=== PATIENT | female | born 1975 | race Caucasian/White ===

== ENCOUNTER 2016-11-05 14:51 | Emergency (ER) | payer SELFPAY ==
[~2016-11-05] VITALS: Ht 172.7 cm; Wt 79.5 kg
[~2016-11-05 14:51] MED LIST: ADVA250A INH; ALBU6.7H INH; CYCL-36 PO; IBUP-238 PO; IPRA17I INH; LASI20TA PO; OXYC15TA PO; POTA-243 PO
[2016-11-05 15:04] VITALS: BP 129/71; PULSE 82; RESP 14; TEMP 98.6; O2SAT 95
--- NOTE | 2016-11-05 15:20 | PD ---
HPI Chief Complaint: Respiratory Symptoms Time Seen by Provider: 15:14 Travel History International Travel<30 days: No Contact w/Intl Traveler<30days: No Traveled to known affect area: No History of Present Illness HPI 40 YO F with PMH of COPD presents to the ED via EMS for evaluation of 1 week history of SOB, worsened over today. The patient endorses chills, has not measured a fever at home. She endorses sinus congestion, runny nose, bilateral ear pain, right greater than left and sore throat 1 week. She denies chest pain, palpitations, nausea, vomiting. She states that she has recently moved from [place] and does not have any of her prescribed nebulizers or medications. She received 2 breathing treatments en route and states that her symptoms are improving. PFSH Past Medical History Asthma: Yes Anxiety: Yes Depression: Yes Cardiovascular Problems: Yes (CHF) COPD: Yes Diminished Hearing: No Respiratory: Yes : 3 Para: 3 Miscarriage: 0 : 0 Tubal Ligation: Yes Past Surgical History Section: Yes (X2) Social History Alcohol Use: Yes (OCCAS) Tobacco Use: No (QUIT 2008) Substance Use: Yes (WEED) Allergies-Medications (Allergen,Severity, Reaction): Coded Allergies: codeine (Unverified Allergy, Severe, Hives, 11/05/16) penicillin G (Unverified Allergy, Severe, Hives, 11/05/16) Reported Meds & Prescriptions Reported Meds & Active Scripts Active Compressor Nebulizer 1 Mis Mis Ea .ROUTE DIRECTED Nebulizer/Adult Mask (N/A) 1 Kit Kit Kit .ROUTE DIRECTED Albuterol Neb (Albuterol Sulfate) 2.5 Mg/3 Ml Neb 2.5 Mg NEB Q4HR NEB PRN Prednisone 20 Mg Tab 40 Mg PO DAILY Take 40 mg (2 tablets) daily for 5 days Proair Hfa 8.5 GM Inh (Albuterol Sulfate) 90 Mcg/Act Aer 2 Puff INH Q4-6H PRN 108 mcg/actuation Azithromycin 250 Mg Tab 250 Mg PO DIRECTED Take 2 tabs (500 mg) on day 1 then 1 tab daily x 4 days. Review of Systems Except as stated in HPI: all other systems reviewed are Neg Physical Exam Narrative GENERAL: Well-nourished, well-developed white female in no acute distress. SKIN: Warm and dry. HEAD: Normocephalic. Atraumatic. EYES: No scleral icterus. No injection or drainage. PERRLA. EOMI. ENT: Pearly herbert tympanic membranes bilaterally. Left external canal erythematous with small amount of exudate. Nasal mucosa is moist. Oropharynx mildly erythematous with scattered white exudates. No edema. Uvula midline. NECK: Supple, trachea midline. No JVD or lymphadenopathy. CARDIOVASCULAR: Regular rate and rhythm without murmurs, gallops, or rubs. 2+ DP and radial pulses bilaterally. RESPIRATORY: Breath sounds coarse rales and end expiratory wheezing in all lung ortez. No accessory muscle use. GASTROINTESTINAL: Abdomen soft, non-tender, nondistended. + Bowel sounds MUSCULOSKELETAL: No cyanosis, or edema. BACK: Nontender without obvious deformity. No CVA tenderness. Data Data Last Documented VS Vital Signs Date Time Temp Pulse Resp B/P (MAP) Pulse Ox O2 Delivery O2 Flow Rate FiO2 11/05/16 15:51 97 21 11/05/16 15:04 98.6 82 14 129/71 (90) Orders Orders Complete Blood Count With Diff (11/05/16 15:25) Influenzae A/B Antigen (11/05/16 15:25) Iv Access Insert/Monitor (11/05/16 15:25) Ecg Monitoring (11/05/16 15:25) Oximetry (11/05/16 15:25) Chest, Single Ap (11/05/16 15:25) Sodium Chloride 0.9% Flush (Ns Flush) (11/05/16 15:30) Methylprednisolone So Succ Inj (Solumedr (11/05/16 15:30) Albuterol-Ipratropium Neb (Duoneb Neb) (11/05/16 15:30) Group A Rapid Strep Screen (11/05/16 15:25) Basic Metabolic Panel (Bmp) (11/05/16 15:25) Strep Culture (Group A) (11/05/16 15:50) Resp Mdi/Instruction (11/05/16 ) Labs Laboratory Tests Test 11/05/16 15:50 White Blood Count 7.5 TH/MM3 Red Blood Count 4.27 MIL/MM3 Hemoglobin 14.1 GM/DL Hematocrit 40.9 % Mean Corpuscular Volume 95.9 FL Mean Corpuscular Hemoglobin 33.0 PG Mean Corpuscular Hemoglobin Concent 34.4 % Red Cell Distribution Width 14.0 % Platelet Count 91 TH/MM3 Mean Platelet Volume 12.0 FL Neutrophils (%) (Auto) 71.1 % Lymphocytes (%) (Auto) 17.8 % Monocytes (%) (Auto) 10.5 % Eosinophils (%) (Auto) 0.2 % Basophils (%) (Auto) 0.4 % Neutrophils # (Auto) 5.3 TH/MM3 Lymphocytes # (Auto) 1.3 TH/MM3 Monocytes # (Auto) 0.8 TH/MM3 Eosinophils # (Auto) 0.0 TH/MM3 Basophils # (Auto) 0.0 TH/MM3 CBC Comment AUTO DIFF Differential Comment AUTO DIFF CONFIRMED Platelet Estimate LOW Platelet Morphology Comment GIANT Ovalocytes 1+ Blood Urea Nitrogen 13 MG/DL Creatinine 0.69 MG/DL Random Glucose 86 MG/DL Calcium Level 9.0 MG/DL Sodium Level 140 MEQ/L Potassium Level 3.5 MEQ/L Chloride Level 107 MEQ/L Carbon Dioxide Level 24.6 MEQ/L Anion Gap 8 MEQ/L Estimat Glomerular Filtration Rate 95 ML/MIN MDM Medical Decision Making Medical Screen Exam Complete: Yes Emergency Medical Condition: Yes Differential Diagnosis COPD exacerbation versus PNA versus Narrative Course 40 YO F with PMH of COPD presents to the ED via EMS for evaluation of 1 week history of SOB, worsened over today. The patient endorses chills, has not measured a fever at home. She endorses sinus congestion, runny nose, bilateral ear pain, right greater than left and sore throat 1 week. She denies chest pain, palpitations, nausea, vomiting. She received 2 breathing treatments en route and states that her symptoms are improving. Vitals reviewed. O2 sats 95- 97% on room air. Physical exam reveals a nontoxic-appearing white female in no acute distress. The left external canal is mildly erythematous. There is mild posterior oropharyngeal erythema with scattered exudates. She does have coarse breath sounds in bilateral lung ortez with end expiratory wheezing. Exam otherwise unremarkable. Patient was administered IV steroids and DuoNeb 3. Rapid strep swab negative CXR: Minimal consolidative changes in the right lower lobe. No leukocytosis on his CBC. CMP unremarkable. On recheck she reports improvement of her symptoms. This is a COPD exacerbation with community-acquired pneumonia. Patient was prescribed azithromycin, prednisone, rescue inhaler with spacer. She was also prescribed nebulizer equipment and medications. She is instructed to use the rescue inhaler until she can afford to by the other equipment. She was provided with information for follow-up with the [facility] and a good Rx discount card. We discussed reasons to return to the ED. Patient indicated understanding of instructions and is agreeable to the care plan. She is stable and discharged home. Diagnosis Primary Impression: CAP (community acquired pneumonia) Qualified Codes: J18.1 - Lobar pneumonia, unspecified organism Additional Impression: COPD with exacerbation Referrals: [facility] Patient Instructions: Community Acquired Pneumonia (ED), General Instructions Additional Instructions: Rest, hydrate. Take all antibiotics as prescribed, even if her symptoms resolve. Take steroids as prescribed. Use the rescue inhaler with the spacer in lieu of the albuterol treatments until you're able to get a new nebulizer. Follow-up with the [facility] as discussed. Return to the ED for worsening symptoms or any urgent or emergent medical condition. Med/Other Pt SpecificInfo: Prescription(s) given Scripts Compressor Nebulizer (Compressor Nebulizer) 1 Mis Mis EA .ROUTE DIRECTED for Breathing Treatment, #1 0 Refills Prov: Tanvi Delgado MD 11/05/16 Nebulizer/Adult Mask (Nebulizer/Adult Mask) 1 Kit Kit KIT .ROUTE DIRECTED for Breathing Treatment, #1 0 Refills Prov: Tanvi Delgado MD 11/05/16 Albuterol Neb (Albuterol Neb) 2.5 Mg/3 Ml Neb 2.5 MG NEB Q4HR NEB Y for SHORTNESS OF BREATH, #60 NEBULE 0 Refills Prov: Tanvi Delgado MD 11/05/16 Prednisone (Prednisone) 20 Mg Tab 40 MG PO DAILY, #10 TAB 0 Refills Take 40 mg (2 tablets) daily for 5 days Prov: Tanvi Delgado MD 11/05/16 Albuterol 8.5 GM Inh (Proair Hfa 8.5 GM Inh) 90 Mcg/Act Aer 2 PUFF INH Q4-6H Y for SHORTNESS OF BREATH, #1 INHALER 0 Refills 108 mcg/actuation Prov: Tanvi Delgado MD 11/05/16 Azithromycin (Azithromycin) 250 Mg Tab 250 MG PO DIRECTED for Infection, #6 TAB 0 Refills Take 2 tabs (500 mg) on day 1 then 1 tab daily x 4 days. Prov: Tanvi Delgado MD 11/05/16 Disposition: 01 DISCHARGE HOME Condition: Stable Radha Bryant Nov 05, 2016 15:20
[2016-11-05] MEDS ORDERED: SODIUM CHLORIDE 0.9% FLUSH 10 ML FLUSH IVF PRN (15:30)
[2016-11-05] MEDS ORDERED: methylPREDNISolone SOD SUCC 125 MG/2 ML VIAL IV PUSH ONE (15:30)
[2016-11-05] MEDS: RESP: ALBUTEROL 2.5 MG/IPRATROPIUM 0.5 MG NEB (SCH) INH ×2 (15:46→15:47)
[2016-11-05 15:51] VITALS: O2SAT 97
--- NOTE | 2016-11-05 15:55 | RADRPT ---
EXAM DATE/TIME: 11/05/2016 15:40 [facility] COMPARISON: CHEST SINGLE AP, August 16, 2013, 4:21. INDICATIONS : Short of breath. MEDICAL HISTORY : Chronic obstructive pulmonary disease. SURGICAL HISTORY : None. ENCOUNTER: Initial ACUITY: 1 day PAIN SCORE: 0/10 LOCATION: Bilateral chest FINDINGS: Minimal probable changes are present in the right base. Left lung is clear. The heart and pulmonary vascularity are normal. The portion of the bony skeleton visualized is unremarkable. CONCLUSION: Minimal probable changes right base. This could be an inflammatory process. Bala Wisdom MD FACR on November 05, 2016 at 15:52 Board Certified Radiologist. This report was verified electronically.
[2016-11-05 16:21] LABS: AUTOMATED NEUTROPHIL # 5.3 TH/MM3 (1.8-7.7); BASOPHIL % 0.4 % (0.0-2.0); EOSINOPHIL % 0.2 % (0.0-4.0); HEMATOCRIT 40.9 % (35.0-46.0); LYMPH % 17.8 % (9.0-44.0); LYMPHOCYTE # 1.3 TH/MM3 (1.0-4.8); MEAN CELL VOLUME 95.9 FL (80.0-100.0); MEAN CORPUSCULAR HGB CONC 34.4 % (32.0-36.0); MONO % 10.5 % (0.0-8.0); NEUT % 71.1 % (16.0-70.0); PLATELET COUNT 91 TH/MM3 (150-450); RED BLOOD COUNT 4.27 MIL/MM3 (4.00-5.30); WHITE BLOOD COUNT 7.5 TH/MM3 (4.0-11.0)
[2016-11-05 16:33] LABS: HEMO FLAGS AUTO DIFF
[2016-11-05 16:38] LABS: BICARBONATE 24.6 MEQ/L (21.0-32.0); POTASSIUM 3.5 MEQ/L (3.5-5.1)
[2016-11-05] MEDS ORDERED: ALBU0.08 NEB (16:48)
[2016-11-05] MEDS ORDERED: ALBUAER3 INH (16:48)
[2016-11-05] MEDS ORDERED: PRED20 PO (16:48)
[2016-11-05] MEDS ORDERED: AZIT250T3 PO (16:48)
[2016-11-05] MEDS ORDERED: NEBULIZER/ADULT1 KIT ×2 (16:48→17:08)
[2016-11-05] MEDS ORDERED: COMPRESSOR NEBU1 MIS ×2 (16:48→17:08)
[2016-11-05 17:26] LABS: OVALOCYTES 1+ (NORMAL); PLATELET ESTIMATE SMEAR LOW (NORMAL); PLATELET MORPHOLOGY GIANT (NORMAL); SCAN/DIFF AUTO DIFF CONFIRMED
== END 2016-11-05 17:28 | disposition home or self-care (01) ==
LOC: NEPC 14:51
DX: J44.0 Chronic obstructive pulmonary disease with (acute) lower respiratory infection (principal); J18.1 Lobar pneumonia, unspecified organism; Z87.891 Personal history of nicotine dependence
CPT/HCPCS: 71010; 80048; 85025; 87081; 87804; 87880; 94640; 94664; 96374; 99285; J2930

== ENCOUNTER 2016-11-11 07:56 | Emergency (ER) | payer SELFPAY ==
[~2016-11-11] VITALS: Ht 162.6 cm; Wt 90.0 kg
[~2016-11-11 07:56] MED LIST changes: -ADVA250A INH; +ALBU0.08 NEB; -ALBU6.7H INH; +ALBUAER3 INH; +AZIT250T3 PO; +COMPRESSOR NEBU1 MIS; -CYCL-36 PO; -IBUP-238 PO; -IPRA17I INH; -LASI20TA PO; +NEBULIZER/ADULT1 KIT; -OXYC15TA PO; -POTA-243 PO; +PRED20 PO
[2016-11-11 07:58] VITALS: BP 151/91; PULSE 76; RESP 18; TEMP 98.5; O2SAT 95
[2016-11-11 08:10] VITALS: BP 132/88; PULSE 92; RESP 19; TEMP 98.3; O2SAT 98
[2016-11-11 08:15] VITALS: O2SAT 97
[2016-11-11 08:59] LABS: BASOPHIL % 0.4 % (0.0-2.0); EOSINOPHIL # 0.1 TH/MM3 (0-0.4); EOSINOPHIL % 1.6 % (0.0-4.0); HEMATOCRIT 39.8 % (35.0-46.0); HEMO FLAGS DIFF FINAL; LYMPH % 25.6 % (9.0-44.0); MEAN CELL VOLUME 95.3 FL (80.0-100.0); MEAN CORPUSCULAR HGB CONC 33.6 % (32.0-36.0); MONO % 8.1 % (0.0-8.0); NEUT % 64.3 % (16.0-70.0); PLATELET COUNT 135 TH/MM3 (150-450); RED BLOOD COUNT 4.17 MIL/MM3 (4.00-5.30); RED CELL DISTRIBUTION WIDTH 13.8 % (11.6-17.2); WHITE BLOOD COUNT 7.8 TH/MM3 (4.0-11.0)
[2016-11-11 09:08] LABS: BACTERIA, URINE RARE /hpf; BLOOD, URINE NEG (NEG); COMMENT (UR) CULT NOT INDICATED; CULTURE IF INDICATED CULT NOT INDICATED; GLUCOSE,URINE NEG (NEG); KETONE, URINE NEG (NEG); NITRITE,URINE NEG (NEG); PH, URINE 6.5 (5.0-8.5); URINE COLOR LIGHT-YELLOW (YELLW/STRAW)
[2016-11-11 09:18] LABS: ALT (GPT) 34 U/L (10-53); ANION GAP 5 MEQ/L (5-15); AST (GOT) 15 U/L (15-37); BLOOD UREA NITROGEN 10 MG/DL (7-18); CHLORIDE 106 MEQ/L (98-107); GLOMERULAR FILTRATION RATE 93 ML/MIN (>89); POTASSIUM 3.7 MEQ/L (3.5-5.1); SODIUM (NA) 139 MEQ/L (136-145)
[2016-11-11 09:21] LABS: ALKALINE PHOSPHATASE 91 U/L (45-117); TOTAL BILIRUBIN ADULT 0.3 MG/DL (0.2-1.0)
[2016-11-11] MEDS ORDERED: methylPREDNISolone SOD SUCC 125 MG/2 ML VIAL IV PUSH ONE (10:00)
[2016-11-11] MEDS: RESP: ALBUTEROL 2.5 MG/IPRATROPIUM 0.5 MG NEB (SCH) INH ×2 (10:08→10:09)
[2016-11-11 10:12] VITALS: O2SAT 96
--- NOTE | 2016-11-11 10:34 | PD ---
HPI Chief Complaint: GI Complaint Time Seen by Provider: 08:57 Travel History International Travel<30 days: No Contact w/Intl Traveler<30days: No Traveled to known affect area: No History of Present Illness HPI 40-year-old female arrives complaining of cough and dyspnea and nausea vomiting is morning. She was recently diagnosed with pneumonia. She completed a course of azithromycin and has been using an albuterol inhaler. She reports marginal improvement if any. She denies fever. This morning she vomited for the first time. 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 Pt complains of sore throat. NO night sweats or hemoptysis. PFSH Past Medical History Asthma: Yes Anxiety: Yes Depression: Yes Cardiovascular Problems: Yes (CHF) COPD: Yes Diminished Hearing: No Respiratory: Yes ?: Not LMP: 11/11/16 : 3 Para: 3 Miscarriage: 0 : 0 Tubal Ligation: Yes Past Surgical History Section: Yes (X2) Social History Alcohol Use: Yes (OCCAS) Tobacco Use: No (QUIT 10/2016) Substance Use: Yes (cannabis) Allergies-Medications (Allergen,Severity, Reaction): Coded Allergies: codeine (Unverified Allergy, Severe, Hives, 11/11/16) penicillin G (Unverified Allergy, Severe, Hives, 11/11/16) Reported Meds & Prescriptions Reported Meds & Active Scripts Active Levofloxacin 500 Mg Tablet 500 Mg PO DAILY 7 Days Clindamycin (Clindamycin HCl) 150 Mg Cap 450 Mg PO Q8HR 7 Days Compressor Nebulizer 1 Mis Mis Ea .ROUTE DIRECTED Nebulizer/Adult Mask (N/A) 1 Kit Kit Kit .ROUTE DIRECTED Albuterol Neb (Albuterol Sulfate) 2.5 Mg/3 Ml Neb 2.5 Mg NEB Q4HR NEB PRN Prednisone 20 Mg Tab 40 Mg PO DAILY Take 40 mg (2 tablets) daily for 5 days Proair Hfa 8.5 GM Inh (Albuterol Sulfate) 90 Mcg/Act Aer 2 Puff INH Q4-6H PRN 108 mcg/actuation Azithromycin 250 Mg Tab 250 Mg PO DIRECTED Take 2 tabs (500 mg) on day 1 then 1 tab daily x 4 days. Review of Systems Except as stated in HPI: all other systems reviewed are Neg Physical Exam Narrative GENERAL: 40 yo F, NAD, speaking full sentences SKIN: Warm and dry. HEAD: Atraumatic. Normocephalic. EYES: Pupils equal and round. No scleral icterus. No injection or drainage. ENT: No nasal bleeding or discharge. Mucous membranes pink and moist. Tonsillar exudate present. +Anterior neck adenopathy. NECK: Trachea midline. No JVD. CARDIOVASCULAR: Regular rate and rhythm. RESPIRATORY: Wheezing present bilaterally. Mild tachypnea. GASTROINTESTINAL: Abdomen soft, non-tender, nondistended. Hepatic and splenic margins not palpable. MUSCULOSKELETAL: Extremities without clubbing, cyanosis, or edema. No obvious deformities. NEUROLOGICAL: Awake and alert. No obvious cranial nerve deficits. Motor grossly within normal limits. Five out of 5 muscle strength in the arms and legs. Normal speech. PSYCHIATRIC: Appropriate mood and affect; insight and judgment normal. Data Data Last Documented VS Vital Signs Date Time Temp Pulse Resp B/P (MAP) Pulse Ox O2 Delivery O2 Flow Rate FiO2 11/11/16 11:06 98 20 135/85 (102) 98 11/11/16 10:12 21 11/11/16 08:15 Room Air 11/11/16 08:10 98.3 vs reviewed Orders Orders Complete Blood Count With Diff (11/11/16 08:12) Comprehensive Metabolic Panel (11/11/16 08:12) Urinalysis - C+S If Indicated (11/11/16 08:12) Ed Urine Pregnancytest Poc (11/11/16 08:12) Iv Access Insert/Monitor (11/11/16 08:12) Oxygen Administration (11/11/16 08:12) Oximetry (11/11/16 08:12) Lipase (11/11/16 08:12) Chest, Single Ap (11/11/16 ) Methylprednisolone So Succ Inj (Solumedr (11/11/16 10:00) Albuterol-Ipratropium Neb (Duoneb Neb) (11/11/16 10:00) Labs Laboratory Tests Test 11/11/16 08:30 11/11/16 08:50 Urine Color LIGHT-YELLOW Urine Turbidity CLEAR Urine pH 6.5 Urine Specific [place] 1.006 Urine Protein NEG mg/dL Urine Glucose (UA) NEG mg/dL Urine Ketones NEG mg/dL Urine Occult Blood NEG Urine Nitrite NEG Urine Bilirubin NEG Urine Urobilinogen LESS THAN 2.0 MG/DL Urine Leukocyte Esterase NEG Urine RBC LESS THAN 1 /hpf Urine Bacteria RARE /hpf Microscopic Urinalysis Comment CULT NOT INDICATED White Blood Count 7.8 TH/MM3 Red Blood Count 4.17 MIL/MM3 Hemoglobin 13.4 GM/DL Hematocrit 39.8 % Mean Corpuscular Volume 95.3 FL Mean Corpuscular Hemoglobin 32.0 PG Mean Corpuscular Hemoglobin Concent 33.6 % Red Cell Distribution Width 13.8 % Platelet Count 135 TH/MM3 Mean Platelet Volume 11.1 FL Neutrophils (%) (Auto) 64.3 % Lymphocytes (%) (Auto) 25.6 % Monocytes (%) (Auto) 8.1 % Eosinophils (%) (Auto) 1.6 % Basophils (%) (Auto) 0.4 % Neutrophils # (Auto) 5.0 TH/MM3 Lymphocytes # (Auto) 2.0 TH/MM3 Monocytes # (Auto) 0.6 TH/MM3 Eosinophils # (Auto) 0.1 TH/MM3 Basophils # (Auto) 0.0 TH/MM3 CBC Comment DIFF FINAL Differential Comment Blood Urea Nitrogen 10 MG/DL Creatinine 0.70 MG/DL Random Glucose 94 MG/DL Total Protein 6.9 GM/DL Albumin 3.2 GM/DL Calcium Level 8.3 MG/DL Alkaline Phosphatase 91 U/L Aspartate Amino Transf (AST/SGOT) 15 U/L Alanine Aminotransferase (ALT/SGPT) 34 U/L Total Bilirubin 0.3 MG/DL Sodium Level 139 MEQ/L Potassium Level 3.7 MEQ/L Chloride Level 106 MEQ/L Carbon Dioxide Level 28.0 MEQ/L Anion Gap 5 MEQ/L Estimat Glomerular Filtration Rate 93 ML/MIN Lipase 160 U/L [facility] Medical Decision Making Medical Screen Exam Complete: Yes Emergency Medical Condition: Yes Differential Diagnosis pneumonia, sepsis, copd, asthma, anemia, renal failure, tb Narrative Course CBC & BMP Diagram 11/11/16 08:50 Total Protein 6.9, Albumin 3.2 L, Calcium Level 8.3 L, Alkaline Phosphatase 91, Aspartate Amino Transf (AST/SGOT) 15, Alanine Aminotransferase (ALT/SGPT) 34, Total Bilirubin 0.3 Last Impressions Chest X-Ray 11/11/16 0000 Signed Impressions: Service Date/Time: Friday, November 11, 2016 10:26 - CONCLUSION: Resolving right basilar density. Ignacio Pacheco MD If no resolution of lung density, cross sectional imaging may be required. return precautions discussed. pt has exudate on tonsils and sore throat and has pcn allergy. atypical coverage with levaquin. strep coverage with clinda. Diagnosis Primary Impression: Pneumonia Qualified Codes: J18.1 - Lobar pneumonia, unspecified organism Additional Impression: Pharyngitis Qualified Codes: J02.9 - Acute pharyngitis, unspecified Referrals: [facility] 2 days Additional Instructions: You have a choice when it comes to health care, and we are glad that you chose [facility]. Hopefully, we have met your expectations on today's visit. You are welcome to return to [facility] at any time, as we are committed to meeting the health care needs of our community. Med/Other Pt SpecificInfo: Prescription(s) given Scripts Levofloxacin (Levofloxacin) 500 Mg Tablet 500 MG PO DAILY for Infection for 7 Days, #7 TAB 0 Refills Prov: Reji Tinsley MD 11/11/16 Clindamycin (Clindamycin) 150 Mg Cap 450 MG PO Q8HR for Infection for 7 Days, CAP 0 Refills Prov: Reji Tinsley MD 11/11/16 Disposition: 01 DISCHARGE HOME Condition: Stable Reji Tinsley MD Nov 11, 2016 10:34
--- NOTE | 2016-11-11 10:50 | RADRPT ---
EXAM DATE/TIME: 11/11/2016 10:26 [facility] COMPARISON: CHEST SINGLE AP, November 05, 2016, 15:40. INDICATIONS : Short of breath with congestion and wheezing. MEDICAL HISTORY : Congestive heart failure. Chronic obstructive pulmonary disease. SURGICAL HISTORY : None. ENCOUNTER: Initial ACUITY: 2 days PAIN SCORE: 0/10 LOCATION: Bilateral chest FINDINGS: A single view of the chest demonstrates resolving right basal density. Left lung clear. Heart normal in size The cardiomediastinal contours are unremarkable. Osseous structures are intact. CONCLUSION: Resolving right basilar density. Ignacio Pacheco MD on November 11, 2016 at 10:48 Board Certified Radiologist. This report was verified electronically.
[2016-11-11] MEDS ORDERED: CLIN1CAP5 PO (10:54)
[2016-11-11] MEDS ORDERED: LEVO500T8 PO (11:04)
[2016-11-11 11:06] VITALS: BP 135/85
== END 2016-11-11 11:09 | disposition home or self-care (01) ==
LOC: NEPE 07:56
DX: J18.9 Pneumonia, unspecified organism (principal); R11.2 Nausea with vomiting, unspecified; F41.9 Anxiety disorder, unspecified; F32.9 Major depressive disorder, single episode, unspecified; I50.9 Heart failure, unspecified; J44.9 Chronic obstructive pulmonary disease, unspecified; Z59.0 Homelessness; Z79.51 Long term (current) use of inhaled steroids; Z79.899 Other long term (current) drug therapy
CPT/HCPCS: 71010; 80053; 81001; 83690; 84703; 85025; 94640; 94664; 96374; 99284; J2930

== ENCOUNTER 2017-06-06 00:04 | Emergency (ER) | payer SELFPAY ==
[~2017-06-06 00:04] MED LIST changes: +CLIN150C14 PO; +LEVO500T8 PO
[2017-06-06 00:23] VITALS: BP 150/70; PULSE 78; RESP 16; TEMP 98.7; O2SAT 98
[2017-06-06 01:08] VITALS: BP 127/74; PULSE 77; RESP 18; O2SAT 97
[2017-06-06 01:12] LABS: BILIRUBIN, URINE NEG (NEG); BLOOD, URINE SMALL (NEG); GLUCOSE,URINE NEG (NEG); KETONE, URINE NEG (NEG); MUCUS URINE FEW /lpf (OCC); NITRITE,URINE NEG (NEG); SQUAMOUS EPITHELIAL CELL URINE 2 /hpf (0-5); URINE COLOR YELLOW (YELLW/STRAW); URINE LEUKOCYTE ESTERASE LARGE (NEG)
[2017-06-06] MEDS ORDERED: CIPR250T52 PO (01:19)
--- NOTE | 2017-06-06 01:20 | PD ---
HPI Chief Complaint: Complaint Time Seen by Provider: 01:04 Travel History International Travel<30 days: No Contact w/Intl Traveler<30days: No Traveled to known affect area: No History of Present Illness HPI The patient is 41 years old. She complains of dysuria for 4 days. Initially there was vomiting and nausea. For the last 2 days she has had no vomiting or nausea. No flank pain. No fever. No vaginal discharge or bleeding. She also complains of a burning sensation in the region of the right scapula. Burning sensation has been there for 2 months. PFSH Past Medical History Asthma: Yes Anxiety: Yes Depression: Yes Cardiovascular Problems: Yes (CHF) COPD: Yes Diminished Hearing: No Respiratory: Yes ?: Not LMP: 06/04/17 : 3 Para: 3 Miscarriage: 0 : 0 Tubal Ligation: Yes Past Surgical History Section: Yes (X2) Social History Alcohol Use: No Tobacco Use: No Substance Use: Yes (cannabis) Allergies-Medications (Allergen,Severity, Reaction): Coded Allergies: codeine (Unverified Allergy, Severe, Hives, 11/11/16) penicillin G (Unverified Allergy, Severe, Hives, 11/11/16) Reported Meds & Prescriptions Reported Meds & Active Scripts Active Proair Hfa 8.5 GM Inh (Albuterol Sulfate) 90 Mcg/Act Aer 2 Puff INH Q4-6H PRN 108 mcg/actuation Cipro (Ciprofloxacin HCl) 250 Mg Tab 250 Mg PO BID 3 Days Compressor Nebulizer 1 Mis Mis Ea .ROUTE DIRECTED Nebulizer/Adult Mask (N/A) 1 Kit Kit Kit .ROUTE DIRECTED Albuterol Neb (Albuterol Sulfate) 2.5 Mg/3 Ml Neb 2.5 Mg NEB Q4HR NEB PRN Review of Systems Except as stated in HPI: all other systems reviewed are Neg General / Constitutional: No: Fever Physical Exam Narrative GENERAL: 41-year-old female pleasant well-nourished well-developed no acute distress Vital Signs Date Time Temp Pulse Resp B/P (MAP) Pulse Ox O2 Delivery O2 Flow Rate FiO2 06/06/17 01:08 77 18 127/74 (91) 97 Room Air 06/06/17 00:23 98.7 78 16 150/70 (96) 98 SKIN: Warm and dry. HEAD: Atraumatic. Normocephalic. EYES: Pupils equal and round. No scleral icterus. No injection or drainage. ENT: No nasal bleeding or discharge. Mucous membranes pink and moist. NECK: Trachea midline. No JVD. CARDIOVASCULAR: Regular rate and rhythm. RESPIRATORY: No accessory muscle use. Clear to auscultation. Breath sounds equal bilaterally. GASTROINTESTINAL: Abdomen soft, non-tender, nondistended. Hepatic and splenic margins not palpable. MUSCULOSKELETAL: Extremities without clubbing, cyanosis, or edema. No obvious deformities. There is no appreciable deformity about the region of the right scapula involvement of the skin in that area to account for the patient's burning sensations. NEUROLOGICAL: Awake and alert. No obvious cranial nerve deficits. Motor grossly within normal limits. Five out of 5 muscle strength in the arms and legs. Normal speech. PSYCHIATRIC: Appropriate mood and affect; insight and judgment normal. Data Data Last Documented VS Vital Signs Date Time Temp Pulse Resp B/P (MAP) Pulse Ox O2 Delivery O2 Flow Rate FiO2 06/06/17 01:47 06/06/17 01:08 77 18 97 Room Air 06/06/17 00:23 98.7 Orders Orders Ed Urine Pregnancytest Poc (06/06/17 00:45) Urinalysis - C+S If Indicated (06/06/17 00:45) Urine Culture (06/06/17 00:43) Ed Discharge Order (06/06/17 01:20) Labs Laboratory Tests Test 06/06/17 00:43 Urine Color YELLOW Urine Turbidity HAZY Urine pH 6.0 Urine Specific [place] 1.020 Urine Protein 30 mg/dL Urine Glucose (UA) NEG mg/dL Urine Ketones NEG mg/dL Urine Occult Blood SMALL Urine Nitrite NEG Urine Bilirubin NEG Urine Urobilinogen LESS THAN 2.0 MG/DL Urine Leukocyte Esterase LARGE Urine RBC 7 /hpf Urine WBC /hpf Urine Squamous Epithelial Cells 2 /hpf Urine Mucus FEW /lpf Microscopic Urinalysis Comment CULTURE INDICATED MDM Medical Decision Making Medical Screen Exam Complete: Yes Emergency Medical Condition: Yes Medical Record Reviewed: Yes Differential Diagnosis UTI, IUP, STD Narrative Course Urinalysis shows a UTI. The patient will go home with antibiotic prescription. The right back shows no significant/appreciable abnormality. Cipro script. Diagnosis Primary Impression: UTI (urinary tract infection) Qualified Codes: N39.0 - Urinary tract infection, site not specified; R31.9 - Hematuria, unspecified Med/Other Pt SpecificInfo: Prescription(s) given Scripts Albuterol 8.5 GM Inh (Proair Hfa 8.5 GM Inh) 90 Mcg/Act Aer 2 PUFF INH Q4-6H Y for SHORTNESS OF BREATH, #1 INHALER 0 Refills 108 mcg/actuation Prov: Reji Tinsley MD 06/06/17 Ciprofloxacin (Cipro) 250 Mg Tab 250 MG PO BID for Infection for 3 Days, #6 TAB 0 Refills Prov: Reji Tinsley MD 06/06/17 Disposition: 01 DISCHARGE HOME Condition: Stable Reji Tinsley MD Jun 06, 2017 01:20
[2017-06-06] MEDS ORDERED: ALBUAER3 INH (01:43)
== END 2017-06-06 01:50 | disposition home or self-care (01) ==
LOC: NEPC 00:04
DX: N39.0 Urinary tract infection, site not specified (principal); R31.9 Hematuria, unspecified; F12.90 Cannabis use, unspecified, uncomplicated; J44.9 Chronic obstructive pulmonary disease, unspecified
CPT/HCPCS: 81001; 84703; 87077; 87086; 87186; 99283